=== PATIENT | female | born 1980 | race Hispanic/Latino ===

== ENCOUNTER 2020-03-19 17:26 | Emergency (ER) | payer MEDICARE ==
[~2020-03-19] VITALS: Ht 170.2 cm; Wt 91.6 kg
[2020-03-19] MEDS ORDERED: SODIUM CHLORIDE 0.9% 1000ML 1,000 ML IV STA (17:33)
[2020-03-19] MEDS ORDERED: FAMOTIDINE 20 MG/2 ML VIAL IV ONE ×2 (17:45→18:02)
[2020-03-19] MEDS ORDERED: SODIUM CHLORIDE 0.9% 1000ML 1,000 ML ONE (18:02)
[2020-03-19] MEDS ORDERED: SODIUM CHLORIDE 0.9% 50ML 50 ML ONE (18:08)
[2020-03-19] MEDS ORDERED: DIATRIZOATE MEGL/DIATRIZOA SOD 30 ML BTL PO ONE (18:08)
[2020-03-19] MEDS ORDERED: IOPAMIDOL 370 MG/ML 200 ML INFUS..BTL INJ ONE (18:09)
[2020-03-19] MEDS ORDERED: MAALOX MAXIMUM355 ML PO (20:01)
[2020-03-19] MEDS ORDERED: FAMOTIDINE20 MG PO (20:01)
[2020-03-19] MEDS ORDERED: ZOFRAN4 MG PO (20:01)
[2020-03-19 20:28] VITALS: BP 127/87
== END 2020-03-19 20:39 | disposition home or self-care (01) ==
LOC: FSED 18:57
DX: K52.9 Noninfective gastroenteritis and colitis, unspecified (principal); R10.11 Right upper quadrant pain
CPT/HCPCS: 74177; 80053; 81003; 81025; 85025; 99284; J7030; Q9967